=== PATIENT | female | born 1985 | race Caucasian/White ===

== ENCOUNTER 2024-03-05 09:03 | Emergency (ER) | payer MEDICAID ==
[~2024-03-05] VITALS: Ht 162.6 cm; Wt 75.0 kg
[2024-03-05 09:31] VITALS: BP 120/87; PULSE 100; RESP 18; TEMP 98.6; O2SAT 98
[2024-03-05] MEDS ORDERED: CEPH500C PO (10:36)
[2024-03-05] MEDS ORDERED: IBUP-1456 PO (10:36)
== END 2024-03-05 10:44 | disposition home or self-care (01) ==
LOC: ER 09:03
DX: S00.01XA Abrasion of scalp, initial encounter (principal); R51.9 Headache, unspecified; X58.XXXA Exposure to other specified factors, initial encounter; Y93.89 Activity, other specified; Y92.89 Other specified places as the place of occurrence of the external cause; Y99.8 Other external cause status
CPT/HCPCS: 70450

== ENCOUNTER 2024-10-06 18:39 | Emergency (ER) | payer MEDICAID ==
[~2024-10-06] VITALS: Ht 152.4 cm; Wt 75.6 kg
[~2024-10-06 18:39] MED LIST: CEPH500C PO; IBUP-1456 PO
[2024-10-06] MEDS ORDERED: METH4PAK PO (20:00)
[2024-10-06] MEDS ORDERED: IBUP-1454 PO (20:00)
--- NOTE | 2024-10-06 20:01 | ED.PDOC ---
Musculoskeletal HPI Comments PATIENT COMPLAINING OF PAIN TO THE BOTTOM OF HER RIGHT FOOT GOING ON ONE MONTH. STATES SHE DOES WALK EXCESSIVELY. PAIN WORSE AFTER WALKING WITH BENDING HER TOES UP. NO TRAUMA TO THE AREA. NOTHING MAKES IT BETTER, MOVING MAKES IT WORSE. Chief Complaint: Lower Extremity Time Seen by MD: 18:45 Primary Care Provider: VONNIE Helms Notes: Nurses Notes Allergies: Coded Allergies: NO KNOWN ALLERGIES (Unverified , 03/05/24) Home Meds Active Scripts Cephalexin Monohydrate (Cephalexin) 500 Mg Cap, 1 CAP PO QID, #28 CAP Prov:TOMMIE CHAMBERLAIN 03/05/24 Ibuprofen (Ibuprofen) 800 Mg Tab, 1 TAB PO TID, #30 TAB Prov:TOMMIE CHAMBERLAIN 03/05/24 Information Source: Patient Mode of Arrival: Ambulatory Location: Right Extremity Location: Foot Past Medical History PAST MEDICAL HISTORY: Denies Surgical History: Denies all surgeries FINGER WAVER History: Denies all FINGER WAVER Hx Family History Family History: Reviewed,noncontributory to illness Social History Smoker: Non-Smoker Alcohol: Denies ETOH Use Drugs: Denies Drug Use Lives In: Home Constitutional: denies: chills, diaphoresis, fatigue, fever, malaise, sweats, weakness, others EENTM: denies: blurred vision, double vision, ear bleeding, ear discharge, ear drainage, ear pain, ear ringing, eye pain, eye redness, hearing loss, mouth pain, mouth swelling, nasal discharge, nose bleeding, nose congestion, nose pain, photophobia, tearing, throat pain, throat swelling, voice changes, others Respiratory: denies: cough, hemoptysis, orthopnea, SOB at rest, shortness of breath, SOB with excertion, stridor, wheezing, others Cardiovascular: denies: chest pain, dizzy spells, diaphoresis, Dyspnea on exertion, edema, irregular heart beat, left arm pain, lightheadedness, palpitations, PND, syncope, others Gastrointestinal: denies: abdomen distended, abdominal pain, blood streaked bowels, constipated, diarrhea, dysphagia, difficulty swallowing, hematemesis, melena, nausea, poor appetite, poor fluid intake, rectal bleeding, rectal pain, vomiting, others Genitourinary: denies: abnormal vagina bleeding, burning, dyspareunia, dysuria, flank pain, frequency, hematuria, incontinence, pain, , vagina discharge, urgency, others Neurological: denies: dizziness, fainting, headache, left sided numbness, left sided weakness, numbness, paresthesia, pre-existing deficit, right sided numbness, right sided weakness, seizure, speech problems, tingling, tremors, we akness, others Musculoskeletal: reports: muscle pain, muscle stiffness; denies: back pain, gout, joint pain, joint swelling, neck pain, others Integumetry: denies: bruises, change in color, change in hair/nails, dryness, laceration, lesions, lumps, rash, wounds, others Allergic/Immunocompromised: denies: Difficulty Healing, Frequent Infections, Hives, Itching, others Hematologic/Lymphatic: denies: anemia, blood clots, easy bleeding, easy bruising, swollen glands, others Physical Exam General Appearance: No Apparent Distress, Normal HEENT: Normal ENT Inspection, Pharynx Normal, TMs Normal Neck: Full Range of Motion, Non-Tender, Normal, Normal Inspection Respiratory: Chest Non-Tender, Lungs Clear, No Accessory Muscle Use, No Respiratory Distress, Normal Breath Sounds Cardiovascular: No Edema, No JVD, No Murmur, No Gallop, Normal Peripheral Pulses, Regular Rate/Rhythm Breast Exam: Deferred Gastrointestinal: No Organomegaly, Non Tender, No Pulsatile Mass, Normal Bowel Sounds, Soft Genitalia: Deferred Pelvic: Deferred Rectal: Deferred Extremities: No calf tenderness, Normal capillary refill, Normal inspection, Normal range of motion, Non-tender, No pedal edema Musculoskeletal : Location: Right Extremity Location: Foot (TENDER TO PALPATION OVER THE RIGHT PLANTAR FASCIA SURFACE. NO SWELLING NO REDNESS NOTED.) Apperance: Normal Neurologic: Alert, vc++ developer II-XII nml as Tested, No Motor Deficits, Normal Affect, Normal Mood, No Sensory Deficits Cerebellar Function: Normal Reflexes: Normal Skin: Dry, Normal Color, Warm Lymphatic: No Adenopathy Was a procedure done? Was a procedure done?: No Differential Diagnosis EXT Differential Diagnosis: Fracture, Sprain, Dislocation, Laceration, Gout X-Ray, Labs, Meds, VS Vital Signs Date Time Temp Pulse Resp B/P (MAP) Pulse Ox O2 Delivery O2 Flow Rate FiO2 10/06/24 19:24 98.0 88 16 134/88 (103) 98 X-Ray, Labs, Meds, VS Comment IMAGING: X-RAYS AND CT SCANS WERE REVIEWED AND INTERPRETED BY THIS PROVIDER, IMAGING SHOWS NO FRACTURES AND NO PATHOLOGICAL DISEASE. PENDING RADIOLOGY REVIEW. LABORATORY: LABS REVIEWED AND INTERPRETED BY THIS PROVIDER. NO SIGNIFICANT ABNORMALITIES NOTED. PATIENT HAS PRIOR MEDICAL VISITS REVIEWED. MED RECONCILIATION PERFORMED VITAL SIGNS REVIEWED Time of 1ST Reevaluation: 20:00 Reevaluation 1ST: Improved Patient Education/Counseling: Diagnosis, Treatment, Need For Follow Up (PATIENT ADVISED TO FOLLOW-UP IN THE EMERGENCY ROOM IN THE NEXT 24 TO 48 HOURS IF SYMPTOMS DO NOT IMPROVE. ADVISED FOLLOW-UP WITH PCP IN THE NEXT 3 TO 5 DAYS. PATIENT VERBALIZED UNDERSTANDING. ) Family Education/Counseling: Diagnosis Departure 1 Departure Time of Disposition: 19:59 Impression: Primary Impression: Plantar fasciitis of right foot Disposition: HOME / SELF CARE / HOMELESS Condition: Fair e-Prescriptions Methylprednisolone (Medrol Dosepak) 4 Mg Virgilio 4 MG PO UD, #21 TAB UAD Prov: JARAD LIMA 10/06/24 Ibuprofen (Ibuprofen) 600 Mg Tab 1 TAB PO TID, #30 TAB Prov: JARAD LIMA 10/06/24 Discharged With: Self Critical Care Note Critical Care Time?: No Stability Stability form required: No Heart Score Heart Score: Heart Score Response (Comments) Value History N/A 0 EKG N/A 0 Age N/A 0 Risk Factors N/A 0 Troponin N/A 0 Total 0 JARAD LIMA Oct 06, 2024 20:01
[2024-10-06 20:32] VITALS: BP 114/68; TEMP 98.7
[2024-10-06 20:38] VITALS: PULSE 97; RESP 19; O2SAT 97
== END 2024-10-06 20:37 | disposition home or self-care (01) ==
LOC: ER 18:39
DX: M72.2 Plantar fascial fibromatosis (principal)